=== PATIENT | male | born 1990 | race African-American/Black ===

== ENCOUNTER 2018-05-20 05:57 | Emergency (ER) | payer OTHER ==
[~2018-05-20] VITALS: Ht 177.8 cm; Wt 77.0 kg
[~2018-05-20 05:57] MED LIST: SEE MED SHEET
[2018-05-20 07:50] VITALS: BP 105/58
[2018-05-20] MEDS ORDERED: ACETAMINOPHEN 500MG TABLET PO ONE (09:30)
== END 2018-05-20 09:35 | disposition left against medical advice (07) ==
LOC: ER 05:57
DX: T40.1X1A Poisoning by heroin, accidental (unintentional), initial encounter (principal); X58.XXXA Exposure to other specified factors, initial encounter
CPT/HCPCS: 99283